=== PATIENT | male | born 1935 | race Asian ===

== ENCOUNTER 2016-05-07 08:49 | Emergency (ER) | payer OTHER ==
[~2016-05-07] VITALS: Ht 167.6 cm; Wt 77.1 kg
[~2016-05-07 08:49] MED LIST: ATOR20TA; CLOP75TA41; DUTA0.5C11; ISOS30TA17; NITR0.4S31; TERA2CAP45
[2016-05-07 10:11] LABS: Basophils # (auto) 0.1 uL; Basophils % (auto) 0.6 % (0.0-2.0); Eosinophils # (auto) 0.1 uL; Eosinophils % (auto) 0.8 % (0.0-7.0); Hematocrit 45.7 % (41.0-53.0); Hemoglobin 15.6 g/dL (13.5-17.5); Lymphocytes # (auto) 1.3 uL; Lymphocytes % (auto) 15.8 % (10.0-50.0); Mean Corpuscular Hemoglobin 30.3 pg (28.0-32.0); Mean Corpuscular Hgb Conc. 34.2 g/dL (32.0-36.0); Mean Corpuscular Volume 88.6 fL (80.0-100.0); Mean Platelet Volume 8.1 fL (7.4-10.4); Monocytes # (auto) 0.3 uL; Monocytes % (auto) 4.2 % (0.0-12.0); Neutrophils # (auto) 6.5 uL; Neutrophils % (auto) 78.6 % (37.0-80.0); Platelet Count (auto) 211 10^3/uL (140-450); Red Cell Distribution Width 14.8 % (11.6-16.0); White Blood Cell 8.3 10^3/uL (4.4-10.8)
[2016-05-07 10:35] LABS: Alkaline Phosphatase 55 U/L (45-117); Anion Gap 9 (5-15); Aspartate Aminotransferase 19 U/L (15-37); BUN/Creatinine Ratio 13.5; Bilirubin, Total 0.8 mg/dL (0.2-1.0); Blood Urea Nitrogen 15 mg/dL (7-18); Calcium 8.7 mg/dL (8.5-10.1); Carbon Dioxide 26 mmol/L (21-32); Chloride 107 mmol/L (98-107); GFR African American 82 mL/min; GFR Non-African American 68 mL/min; Glucose 131 mg/dL (74-106); Magnesium 2.1 mg/dL (1.6-2.6); Potassium 4.8 mmol/L (3.5-5.1); Sodium 142 mmol/L (136-145); Total Protein 7.7 g/dL (6.4-8.2)
[2016-05-07] MEDS ORDERED: MECLIZINE HCL 25 MG TAB PO ONE (13:45)
[2016-05-07 16:10] VITALS: BP 137/69
== END 2016-05-07 16:34 | disposition home or self-care (01) ==
LOC: ER 08:57
DX: H81.10 Benign paroxysmal vertigo, unspecified ear (principal); R00.1 Bradycardia, unspecified; I10 Essential (primary) hypertension; R73.9 Hyperglycemia, unspecified; E78.5 Hyperlipidemia, unspecified; I20.9 Angina pectoris, unspecified; N40.0 Benign prostatic hyperplasia without lower urinary tract symptoms
CPT/HCPCS: 36415; 70450; 71020; 80053; 83735; 84484; 85025; 93005; 99285; J8597

== ENCOUNTER 2021-09-23 08:47 | Emergency (ER) | payer OTHER ==
[~2021-09-23 08:47] MED LIST changes: -CLOP75TA41; +CLOP75TA70
[2021-09-23 09:00] VITALS: BP 106/74
[2021-09-23] MEDS ORDERED: methylPREDNISolone SOD SUCC 125 MG/2 ML VL IM ONE (09:15)
[2021-09-23 09:39] LABS: Basophils # (auto) 0 10 ^3/uL (0-0.2); Basophils % (auto) 0.8 % (0.0-2.0); Eosinophils # (auto) 0.1 10 ^3/uL (0-0.8); Eosinophils % (auto) 0.9 % (0.0-7.0); Hematocrit 40.5 % (41.0-53.0); Hemoglobin 13.6 g/dL (13.5-17.5); Lymphocytes # (auto) 1.4 10 ^3/uL (0.4-5.4); Mean Corpuscular Hemoglobin 31.6 pg (28.0-32.0); Mean Corpuscular Hgb Conc. 33.6 g/dL (32.0-36.0); Mean Corpuscular Volume 94.1 fL (80.0-100.0); Monocytes # (auto) 0.6 10 ^3/uL (0-1.3); Monocytes % (auto) 10.2 % (0.0-12.0); Neutrophils # (auto) 4.1 10 ^3/uL (1.6-8.6); Neutrophils % (auto) 66.1 % (37.0-80.0); Nucleated Red Blood Cells % 0.1 %; Red Cell Distribution Width 13.6 % (11.8-14.3); White Blood Cell 6.1 10^3/uL (4.4-10.8)
[2021-09-23 09:53] LABS: BUN/Creatinine Ratio 10.8; Calcium 8.8 mg/dL (8.5-10.1); Potassium 3.8 mmol/L (3.5-5.1); Uric Acid 8.5 mg/dL (3.5-7.2)
[2021-09-23] MEDS ORDERED: traMADol HCL 50 MG TAB PO ONE (10:00)
[2021-09-23] MEDS ORDERED: TRAM-297 PO (10:04)
[2021-09-23] MEDS ORDERED: PRED20TA2 PO (10:04)
== END 2021-09-23 10:10 | disposition home or self-care (01) ==
LOC: ER 08:47
DX: M10.9 Gout, unspecified (principal); E78.5 Hyperlipidemia, unspecified; I10 Essential (primary) hypertension
CPT/HCPCS: 36415; 73630; 80048; 84550; 85025; 96372; 99284; J2930

== ENCOUNTER 2021-12-04 07:35 | Emergency (ER) | payer OTHER ==
[~2021-12-04] VITALS: Ht 162.6 cm; Wt 79.8 kg
[~2021-12-04 07:35] MED LIST changes: +PRED20TA2 PO; +TRAM-297 PO
[2021-12-04 09:10] LABS: Basophils # (auto) 0 10 ^3/uL (0-0.2); Basophils % (auto) 0.6 % (0.0-2.0); Eosinophils # (auto) 0 10 ^3/uL (0-0.8); Eosinophils % (auto) 0.5 % (0.0-7.0); Hematocrit 40.3 % (41.0-53.0); Hemoglobin 13.8 g/dL (13.5-17.5); Lymphocytes % (auto) 13.2 % (10.0-50.0); Mean Corpuscular Hemoglobin 31.6 pg (28.0-32.0); Mean Corpuscular Hgb Conc. 34.3 g/dL (32.0-36.0); Mean Corpuscular Volume 92.2 fL (80.0-100.0); Monocytes # (auto) 0.9 10 ^3/uL (0-1.3); Monocytes % (auto) 11.3 % (0.0-12.0); Neutrophils # (auto) 5.7 10 ^3/uL (1.6-8.6); Neutrophils % (auto) 74.4 % (37.0-80.0); Nucleated Red Blood Cells % 0.1 %; Red Blood Cells 4.37 10^6/uL (4.5-5.90); Red Cell Distribution Width 14.6 % (11.8-14.3); White Blood Cell 7.7 10^3/uL (4.4-10.8)
[2021-12-04 09:16] LABS: Albumin 3.9 g/dL (3.4-5.0); Calcium 8.6 mg/dL (8.5-10.1); Potassium 3.7 mmol/L (3.5-5.1)
[2021-12-04 09:19] LABS: Bilirubin, Total 1.4 mg/dL (0.2-1.0); Total Protein 6.6 g/dL (6.4-8.2)
[2021-12-04 13:25] VITALS: BP 137/67
== END 2021-12-04 13:24 | disposition home or self-care (01) ==
LOC: ER 07:35
DX: R10.33 Periumbilical pain (principal); R74.01 Elevation of levels of liver transaminase levels; I10 Essential (primary) hypertension; E78.5 Hyperlipidemia, unspecified; M10.9 Gout, unspecified; Z95.1 Presence of aortocoronary bypass graft
CPT/HCPCS: 36415; 74176; 80053; 83690; 85025; 93005

== ENCOUNTER 2022-03-17 14:46 | Emergency (ER) | payer OTHER ==
[~2022-03-17] VITALS: Ht 162.6 cm; Wt 77.5 kg
[2022-03-17 15:37] VITALS: BP 121/79
[2022-03-17] MEDS ORDERED: TETANUS-DIPTH-ACEL PERTUSSIS 0.5ML SYR Tdap IM ONE (15:45)
[2022-03-17] MEDS ORDERED: CEPH500C PO (15:49)
== END 2022-03-17 16:02 | disposition home or self-care (01) ==
LOC: ER 14:46
DX: S61.411A Laceration without foreign body of right hand, initial encounter (principal); I10 Essential (primary) hypertension; E03.9 Hypothyroidism, unspecified; E78.5 Hyperlipidemia, unspecified; M10.9 Gout, unspecified; Z95.1 Presence of aortocoronary bypass graft; Z79.01 Long term (current) use of anticoagulants; Z79.899 Other long term (current) drug therapy; W26.8XXA Contact with other sharp object(s), not elsewhere classified, initial encounter; Y93.89 Activity, other specified; Y92.89 Other specified places as the place of occurrence of the external cause; Y99.8 Other external cause status
CPT/HCPCS: 12002; 90471; 90715; 99283; J2001

== ENCOUNTER 2022-03-27 08:28 | Emergency (ER) | payer OTHER ==
[~2022-03-27] VITALS: Ht 165.1 cm; Wt 77.0 kg
[~2022-03-27 08:28] MED LIST changes: +CEPH500C PO
[2022-03-27 09:37] VITALS: BP 154/76
== END 2022-03-27 10:14 | disposition home or self-care (01) ==
LOC: ER 08:28
DX: S61.411D Laceration without foreign body of right hand, subsequent encounter (principal); I10 Essential (primary) hypertension; E03.9 Hypothyroidism, unspecified; E78.5 Hyperlipidemia, unspecified; M10.9 Gout, unspecified; Z95.1 Presence of aortocoronary bypass graft; Z79.01 Long term (current) use of anticoagulants; Z79.899 Other long term (current) drug therapy; X58.XXXD Exposure to other specified factors, subsequent encounter

== ENCOUNTER 2023-01-27 17:17 | Inpatient (IN) | payer OTHER, MEDICAID ==
[~2023-01-27] VITALS: Ht 157.5 cm; Wt 78.4 kg
[2023-01-27] MEDS ORDERED: PROMETHAZINE HCL 25 MG/ML 1ML IV ONE (17:45)
[2023-01-27] MEDS ORDERED: SODIUM CHLORIDE 0.9% 1,000 ML IV ONE (17:45)
[2023-01-27 17:57] LABS: Basophils # (auto) 0.1 10 ^3/uL (0-0.2); Basophils % (auto) 0.8 % (0.0-2.0); Eosinophils # (auto) 0.1 10 ^3/uL (0-0.8); Eosinophils % (auto) 1.2 % (0.0-7.0); Hematocrit 40.4 % (41.0-53.0); Hemoglobin 13.4 g/dL (13.5-17.5); Lymphocytes % (auto) 12.9 % (10.0-50.0); Mean Corpuscular Hemoglobin 31.6 pg (28.0-32.0); Mean Corpuscular Hgb Conc. 33.2 g/dL (32.0-36.0); Monocytes # (auto) 0.5 10 ^3/uL (0-1.3); Monocytes % (auto) 7.1 % (0.0-12.0); Neutrophils # (auto) 6.1 10 ^3/uL (1.6-8.6); Red Blood Cells 4.25 10^6/uL (4.5-5.90); Red Cell Distribution Width 15.6 % (11.8-14.3); White Blood Cell 7.8 10^3/uL (4.4-10.8)
[2023-01-27 18:45] LABS: Alanine Aminotransferase 27 U/L (7-40); Albumin 4.4 g/dL (3.2-4.8); Alkaline Phosphatase 70 U/L (46-116); Anion Gap 9 (5-15); Aspartate Aminotransferase 35 U/L (13-40); BUN/Creatinine Ratio 17.4 (10.0-20.0); Bilirubin, Total 0.7 mg/dL (0.2-1.0); Blood Urea Nitrogen 23 mg/dL (9-23); Calcium 8.6 mg/dL (8.7-10.4); Carbon Dioxide 23 mmol/L (20-30); Chloride 109 mmol/L (98-107); Glucose 125 mg/dL (74-106); Potassium 4.3 mmol/L (3.5-5.1); Sodium 141 mmol/L (136-145); Total Protein 6.6 g/dL (5.7-8.2)
[2023-01-27 19:35] VITALS: PULSE 80; O2SAT 92
[2023-01-27 21:35] LABS: Urine Bacteria NONE SEEN /hpf (None Seen); Urine Blood Negative /uL (Negative); Urine Clarity Clear (Clear); Urine Color Yellow (Yellow); Urine Mucus FEW (None Seen); Urine Protein, UAD Negative (Negative); Urine Specific Gravity 1.018 (1.001-1.035); Urine Urobilinogen Normal (Negative); Urine WBC 1 /hpf (0 - 3); Urine pH 6.5 (5.0-8.0)
[2023-01-27 21:44] LABS: Magnesium 1.8 mg/dL (1.6-2.6)
[2023-01-27 21:56] LABS: Lactic Acid w/Reflex 2.4 mmol/L (0.4-2.0)
[2023-01-27 22:03] LABS: COVID19 ANTIGEN SOFIA FIA NEGATIVE (NEGATIVE); Rapid Influenza A Negative (Negative); Rapid Influenza B Negative (Negative)
[2023-01-28] MEDS ORDERED: MORPHINE SULFATE INJ 2 MG/ml SYRG IV PRN (00:15)
[2023-01-28] MEDS ORDERED: ACETAMINOPHEN 325 MG TAB PO PRN (00:15)
[2023-01-28] MEDS ORDERED: ONDANSETRON HCL 4 MG/2 ML VIAL IV PRN (00:15)
[2023-01-28] MEDS ORDERED: SODIUM CHLORIDE 0.9% 1,000 ML IV SCH (00:15)
[2023-01-28 04:51] VITALS: PULSE 72; RESP 18; TEMP 36.6; O2SAT 96
[2023-01-28 05:02] VITALS: BP 162/84; PULSE 66; RESP 18; TEMP 98.4; O2SAT 95
[2023-01-28 06:24] LABS: Basophils # (auto) 0.1 10 ^3/uL (0-0.2); Eosinophils # (auto) 0.1 10 ^3/uL (0-0.8); Eosinophils % (auto) 1.1 % (0.0-7.0); Hematocrit 38.5 % (41.0-53.0); Hemoglobin 13.2 g/dL (13.5-17.5); Lymphocytes # (auto) 1.6 10 ^3/uL (0.4-5.4); Mean Corpuscular Hemoglobin 31.9 pg (28.0-32.0); Mean Corpuscular Hgb Conc. 34.2 g/dL (32.0-36.0); Mean Corpuscular Volume 93.2 fL (80.0-100.0); Monocytes # (auto) 0.6 10 ^3/uL (0-1.3); Monocytes % (auto) 8.5 % (0.0-12.0); Neutrophils # (auto) 4.6 10 ^3/uL (1.6-8.6); Neutrophils % (auto) 66.4 % (37.0-80.0); Red Blood Cells 4.13 10^6/uL (4.5-5.90); Red Cell Distribution Width 15.1 % (11.8-14.3); White Blood Cell 6.9 10^3/uL (4.4-10.8)
[2023-01-28 06:44] LABS: Alanine Aminotransferase 19 U/L (7-40); Albumin 3.7 g/dL (3.2-4.8); Alkaline Phosphatase 53 U/L (46-116); Anion Gap 7 (5-15); Aspartate Aminotransferase 26 U/L (13-40); BUN/Creatinine Ratio 11.5 (10.0-20.0); Blood Urea Nitrogen 13 mg/dL (9-23); Calcium 8.3 mg/dL (8.5-10.1); Carbon Dioxide 23 mmol/L (20-30); Chloride 112 mmol/L (98-107); Glucose 93 mg/dL (74-106); Potassium 4.2 mmol/L (3.5-5.1); Sodium 142 mmol/L (136-145)
[2023-01-28 06:45] LABS: Bilirubin, Total 0.9 mg/dL (0.2-1.0); Total Protein 5.8 g/dL (5.7-8.2)
[2023-01-28 08:00] VITALS: BP 128/72; PULSE 55; RESP 16; TEMP 98.1; O2SAT 95
[2023-01-28 12:00] VITALS: BP 132/75; PULSE 56; RESP 16; TEMP 98.4; O2SAT 96
[2023-01-28 16:00] VITALS: BP 131/84; PULSE 62; RESP 16; TEMP 98.6; O2SAT 96
[2023-01-28 16:55] VITALS: BP 132/75; PULSE 56; RESP 18; TEMP 98.4
[2023-01-29 10:11] LABS: Hepatitis B Surface Antigen Negative (Negative)
[2023-01-29 10:33] LABS: Hepatitis C Antibody Negative (Negative)
== END 2023-01-28 16:20 | disposition home or self-care (01) | DRG 312 ==
LOC: EDBD 17:17 → ER 17:17 → OVERFLOW 01-28 00:38 → EAST 01-28 03:55
PROVIDERS: ADMIT Nurse Practitioner Family; ATTEND Nurse Practitioner Family
DX: R55 Syncope and collapse (principal); E87.20 Acidosis, unspecified; R00.1 Bradycardia, unspecified; N18.9 Chronic kidney disease, unspecified; I12.9 Hypertensive chronic kidney disease with stage 1 through stage 4 chronic kidney disease, or unspecified chronic kidney disease; R73.9 Hyperglycemia, unspecified; E83.51 Hypocalcemia; E78.5 Hyperlipidemia, unspecified; M10.9 Gout, unspecified; Z20.822 Contact with and (suspected) exposure to COVID-19; R42 Dizziness and giddiness; R11.2 Nausea with vomiting, unspecified; Z95.1 Presence of aortocoronary bypass graft
CPT/HCPCS: 36415; 70450; 71045; 80053; 81001; 83605; 83690; 83735; 83880; 84443; 84484; 85025; 86803; 87340; 87426; 87804; 93005; 96361; 96374; G0378

== ENCOUNTER 2024-09-26 13:16 | Inpatient (IN) | payer OTHER ==
[~2024-09-26] VITALS: Ht 160 cm; Wt 84.7 kg
[~2024-09-26 13:16] MED LIST changes: -CEPH500C PO; -TERA2CAP45; +TERA2CAP79
--- NOTE | 2024-09-26 14:59 | ED.PDOC ---
General HPI Comments HPI: Poor Historian. 89-year-old male presents to emergency department for evaluation of three day history of constipation and difficulty urinating for one day. Patient also has some generalized weakness. Denies any other acute symptoms. Patient is poor historian. Patient has some type of blood thinners. Past Medical History: Past Surgical History: Some stents placed REVIEW OF SYSTEMS: CONSTITUTIONAL: Denies acute: fever, diaphoresis, chills, HEAD: Denies acute: headache, photophobia Eyes: Denies acute: Double vision, vision loss, eye pain, eye discharge. EARS: Denies acute: tinnitus, hearing loss, ear discharge, ear pain, THROAT: Denies acute: sore throat, swelling, difficulty swallowing , pain with swallowing, change in voice. NECK: Denies acute: neck pain, neck swelling, stiff neck. HEART: Denies acute : chest pain, palpitations, LUNGS: Denies acute: SOB, wheezing, cough, hemoptysis ABDOMEN: Denies acute: , Nausea, Vomiting, diarrhea, melena , hematemesis, hematochezia SKIN: Denies acute: rash, redness, lesions, itchiness. EXTREMITIES: Denies acute: calf pain, numbness, tingling, weakness, denies pain in extremity. Denies acute: Low back pain. Neuro: Denies acute: focal neurological deficit, motor or sensory focal neurological deficit, tremors, seizure like activity, confusion, dizziness, change in mental status, loss of bowel or bladder function, cauda equina like symptoms. : Denies acute: dysuria, hematuria, flank pain, increase in urinary frequency. PSYCH: Denies acute: hallucination, suicidal ideation, homicidal ideation. PHYSICAL EXAM: General: ----[id number]----acute distress, awake and alert. Head: normocephalic, atraumatic. Neck: supple, trachea is midline, no swelling. Throat: Normal phonation. Eyes:, no erythema, no purulent discharge, no proptosis, no icterus. Heart: regular rate, regular rhythm, no significant murmur appreciated. Lungs: no apparent respiratory distress, Able to speak in full sentences. No wheezing, no rhonchi, no crackles. No stridors Clear to auscultation bilaterally. Abdomen: Suprapubic tender to palpation, non distended, soft, no guarding, no rebound, + bowel sounds. Neuro: Awake, Alert, oriented to name, self, situation, follows commands GCS=15. Speech is normal. Skin: no petechia, no purpura, no cyanosis, non-pale, not jaundice. Lower extremities: --no - Pitting edema no deformity, no focal swelling, no calf TTP. Makes eye contact. moves all four extremities. Face: no apparent facial droop. ED COURSE: DISCLAIMER: This medical document was created using an electronic medical record system with voice recognition software and computerized dictation system. Although this document has been carefully reviewed, there might still be some phonetic and typographical errors. Occasional wrong-word or "sound-alike" substitutions may have occurred due to the inherent limitations of voice recognition software. These areas are purely typographical due to imperfections of the software programs and do not reflect any compromise in the patient's medical care. Please read the chart carefully and recognize, using context, where these substitutions have occurred. Chief Complaint: Urinary Time Seen by MD: 14:26 Primary Care Provider: PAULETTE Allergies: Coded Allergies: NO KNOWN ALLERGIES (Unverified , 10/12/11) Home Meds Active Scripts Tramadol Hcl (Ultram) 50 Mg Tab, 50 MG PO BID, #20 TAB Prov:MARVA BENEDICT 09/23/21 Prednisone (Prednisone) 20 Mg Tab, 40 MG PO DAILY, #20 MG Prov:MARVA BENEDICT 09/23/21 Reported Medications Isosorbide Mononitrate (Imdur) 30 Mg Tab, DAILY 10/12/11 Dutasteride (Avodart) 0.5 Mg Cap, DAILY 10/12/11 Nitroglycerin (Nitroglycerin) 0.4 Mg Sl 10/12/11 Clopidogrel Bisulfate (CLOPIDOGREL) 75 Mg Tab, DAILY 10/12/11 Atorvastatin Calcium (Lipitor) 20 Mg Tab, DAILY 10/12/11 Terazosin Hcl (Terazosin Hcl) 2 Mg Cap, DAILY 10/12/11 Information Source: Patient Past Medical History PAST MEDICAL HISTORY: Angina, Gout, High Lipids, HTN, Thyroid Surgical History: CABG Family History Family History: Reviewed,noncontributory to illness Social History Smoker: Non-Smoker Alcohol: Denies ETOH Use Drugs: Denies Drug Use Lives In: Home X-Ray, Labs, Meds, VS Vital Signs Date Time Temp Pulse Resp B/P (MAP) Pulse Ox O2 Delivery O2 Flow Rate FiO2 09/26/24 15:40 84 16 98 Room Air* 0 21 09/26/24 15:35 98.4 78 18 162/86 (111) 98 98.4 09/26/24 15:32 98.9 95 18 162/80 (107) 100 98.9 Lab Test 09/26/24 16:23 09/26/24 15:31 09/26/24 14:47 Range/Units Troponin I High Sensitivity 18 19 </=54 ng/L White Blood Count 9.8 4.4-10.8 10^3/uL Red Blood Count 4.99 4.5-5.90 10^6/uL Hemoglobin 16.0 13.5-17.5 g/dL Hematocrit 47.1 41.0-53.0 % Mean Corpuscular Volume 94.3 80.0-100.0 fL Mean Corpuscular Hemoglobin 32.0 28.0-32.0 pg Mean Corpuscular Hemoglobin Concent 33.9 32.0-36.0 g/dL Red Cell Distribution Width 14.2 11.8-14.3 % Platelet Count 145 140-450 10^3/uL Mean Platelet Volume 8.4 6.9-10.8 fL Neutrophils (%) (Auto) 83.0 H 37.0-80.0 % Lymphocytes (%) (Auto) 10.1 10.0-50.0 % Monocytes (%) (Auto) 6.0 0.0-12.0 % Eosinophils (%) (Auto) 0.5 0.0-7.0 % Basophils (%) (Auto) 0.4 0.0-2.0 % Neutrophils # (Auto) 8.1 1.6-8.6 10 ^3/uL Lymphocytes # (Auto) 1.0 0.4-5.4 10 ^3/uL Monocytes # (Auto) 0.6 0-1.3 10 ^3/uL Eosinophils # (Auto) 0.1 0-0.8 10 ^3/uL Basophils # (Auto) 0 0-0.2 10 ^3/uL Nucleated Red Blood Cells 0.0 % Sodium Level 139 136-145 mmol/L Potassium Level 4.5 3.5-5.1 mmol/L Chloride Level 105 98-107 mmol/L Carbon Dioxide Level 22 20-31 mmol/L Anion Gap 12 5-15 Blood Urea Nitrogen 19 9-23 mg/dL Creatinine 1.52 H 0.700-1.30 mg/dL Glomerular Filtration Rate Calc 44 >90 mL/min BUN/Creatinine Ratio 12.5 10.0-20.0 Serum Glucose 96 74-106 mg/dL Lactic Acid Level 1.9 0.4-2.0 mmol/L Calcium Level 10.7 H 8.7-10.4 mg/dL Total Bilirubin 1.2 H 0.2-1.0 mg/dL Aspartate Amino Transferase (AST) 49 H 13-40 U/L Alanine Aminotransferase (ALT) 56 H 7-40 U/L Alkaline Phosphatase 65 46-116 U/L Total Protein 7.4 5.7-8.2 g/dL Albumin 5.0 H 3.2-4.8 g/dL Urine Color Light-yellow Yellow Urine Clarity Clear Clear Urine pH 5.0 5.0-9.0 Urine Specific Bernard 1.013 1.001-1.035 Urine Protein Negative Negative Urine Ketones Negative Negative Urine Blood Negative Negative /uL Urine Nitrite Negative Negative Urine Bilirubin Negative Negative Urine Urobilinogen Normal Negative mg/dL Urine Leukocyte Esterase Negative Negative /uL Urine RBC <1 0 - 3 /hpf Urine Microscopic WBC < 1 0-3 /HPF Urine Squamous Epithelial Cells Few <5 /hpf Urine Bacteria None seen None Seen /hpf Urine Mucus Few None Seen Urine Glucose Normal Normal mg/dL Current Medications Medications (Trade) Dose Ordered Sig/Kirit Route Start Time Stop Time Status Last Admin Sodium Chloride 1,000 ml @ 1,000 mls/hr Q1H ONCE IV 09/26/24 15:00 09/26/24 15:59 DC 09/26/24 15:[address] [address] Ph: [phone] DIAGNOSTIC IMAGING Diagnostic Imaging Report : [id number] Signed PATIENT: JUAN WARREN ACCT: [id number] UNIT: [id number] : 1935 LOC: ER ROOM / BED: / AGE / SEX: 89 / M ADM STATUS: REG ER SERVICE [id number] ORDERING PHYSICIAN: ROBERT LEE DO PROCEDURE(s): ABPL - CT AB PEL WO CON-NO ORAL OR IV REASON: Unable to urinate, constipation ORDER NUMBER(s): [id number], ACCESSION NUMBER(s): [id number] EXAM: CT CT AB PEL WO CON-NO ORAL OR IV HISTORY: Unable to urinate, constipation COMPARISON: CT ABD PELVIS WO CONTRAST on DOS: 12/04/21 TECHNIQUE: Helical CT images of the abdomen and pelvis were performed without IV contrast. Sagittal and coronal reformatted images were obtained. This CT exam was performed using one or more of the following dose reduction techniques: Automated exposure control, adjustment of the mA and/or kv according to patient size, or the use of iterative reconstruction techniques. Radiation Dose: Abdomen/Pelvis: CTDIvol 9.76 mGy, DLP 494.62 mGy*cm. FINDINGS: CT abdomen: There is a trace right pleural effusion. There is a trace pericardial effusion. The heart is enlarged. The noncontrast liver, spleen, gallbladder, pancreas, kidneys, and adrenal glands are unremarkable. No abdominal aortic aneurysm. CT pelvis: No abnormal bowel dilatation, free air, or free fluid. There is fecal retention in the ascending colon, descending colon, sigmoid colon, and rectum. The appendix is not dilated. There is moderate to marked prostatic enlargement, with mass effect on the urinary bladder lumen. 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 There is question of early stage avascular necrosis of the bilateral femoral heads versus artifactual appearance due to osteoarthritis. IMPRESSION: 1. Trace right pleural effusion and trace pericardial effusion. 2. Cardiomegaly. 3. Fecal retention in the colon suggestive of constipation. 4. Moderate to severe prostatic enlargement with mass effect on the urinary bladder. Recommend urology consultation if not already obtained. 5. No evidence of bowel obstruction, acute appendicitis, or other acute process in the abdomen or pelvis. ATED BY: ROMAIN REYES MD DICTATED DATE/TIME: 09/26/24 1522 SIGNED BY: ROMAIN REYES MD SIGNED DATE/TIME: 09/26/24 1522 CC: SEPSIS Sepsis Screen Physician Orders Drama Teacher (09/26/24 ) Electrocardigram (09/26/24 14:50) Ct Ab Pel Wo Con-No Oral Or Iv (09/26/24 14:50) Blood Culture (09/26/24 14:50) Troponin-I Hs (09/26/24 17:50) Bladder Scan (09/26/24 ) Insert Dodd Catheter QSHIFT (09/26/24 15:28) Vital Signs Date Time Temp Pulse Resp B/P (MAP) Pulse Ox O2 Delivery O2 Flow Rate FiO2 09/26/24 15:40 84 16 98 Room Air* 0 21 09/26/24 15:35 98.4 78 18 162/86 (111) 98 98.4 09/26/24 15:32 98.9 95 18 162/80 (107) 100 98.9 Laboratory Tests Test 09/26/24 15:31 Lactic Acid Level 1.9 mmol/L (0.4-2.0) White Blood Count 9.8 10^3/uL (4.4-10.8) Medications Medications Dose Ordered Sig/Kirit Route Start Time Stop Time Status Last Admin Dose Admin Sodium Chloride 1,000 ml @ 1,000 mls/hr Q1H ONCE IV 09/26/24 15:00 09/26/24 15:59 DC 09/26/24 15:37 Departure 1 Departure Time of Disposition: 15:29 Impression: Primary Impression: Acute urinary retention Additional Impressions: Enlarged prostate Constipation Fecal impaction in rectum Disposition: ADMITTED INPATIENT Admit to: Tele Condition: Guarded Discharged With: Self I personally scribed for ROBERT LEE DO ([email or web address]) on 09/26/24 at 17:00. Electronically submitted by Moris Mancilla ([email or web address]). I personally scribed for ROBERT LEE DO ([email or web address]) on 09/26/24 at 18:18. Electronically submitted by Becky Smith ([employer]). ROBERT LEE DO Sep 26, 2024 14:59
[2024-09-26 15:10] LABS: Urine Protein, UAD Negative (Negative)
--- NOTE | 2024-09-26 15:24 | DVH ---
EXAM: CT CT AB PEL WO CON-NO ORAL OR IV HISTORY: Unable to urinate, constipation COMPARISON: CT ABD PELVIS WO CONTRAST on DOS: 12/04/21 TECHNIQUE: Helical CT images of the abdomen and pelvis were performed without IV contrast. Sagittal a nd coronal reformatted images were obtained. This CT exam was performed using one or more of the foll owing dose reduction techniques: Automated exposure control, adjustment of the mA and/or kv according to patient size, or the use of iterative reconstruction techniques. Radiation Dose: Abdomen/Pelvis: CTDIvol 9.76 mGy, DLP 494.62 mGy*cm. FINDINGS: CT abdomen: There is a trace right pleural effusion. There is a trace pericardial effusion. The heart is enlarged. The noncontrast liver, spleen, gallbladder, pancreas, kidneys, and adrenal glands are unremarkable. No abdominal aortic aneurysm. CT pelvis: No abnormal bowel dilatation, free air, or free fluid. There is fecal retention in the asc ending colon, descending colon, sigmoid colon, and rectum. The appendix is not dilated. There is mode rate to marked prostatic enlargement, with mass effect on the urinary bladder lumen. There is moderat e lumbar and lower thoracic degenerative disc disease. There is [id number] osteoarthritis of th e hips, slightly greater on the right. There is question of early stage avascular necrosis of the willow ateral femoral heads versus artifactual appearance due to osteoarthritis. IMPRESSION: 1. Trace right pleural effusion and trace pericardial effusion. 2. Cardiomegaly. 3. Fecal retention in the colon suggestive of constipation. 4. Moderate to severe prostatic enlargement with mass effect on the urinary bladder. Recommend urolo gy consultation if not already obtained. 5. No evidence of bowel obstruction, acute appendicitis, or other acute process in the abdomen or pel vis.
[2024-09-26] MEDS: SODIUM CHLORIDE 0.9% 1,000 ML IV ONE (15:37)
[2024-09-26 15:40] VITALS: PULSE 84; RESP 16; O2SAT 98
[2024-09-26 16:03] LABS: Hematocrit 47.1 % (41.0-53.0); Hemoglobin 16.0 g/dL (13.5-17.5); Mean Corpuscular Hemoglobin 32.0 pg (28.0-32.0); Mean Corpuscular Volume 94.3 fL (80.0-100.0); Nucleated Red Blood Cells % 0.0 %
[2024-09-26 16:17] LABS: Alkaline Phosphatase 65 U/L (46-116); Anion Gap 12 (5-15); BUN/Creatinine Ratio 12.5 (10.0-20.0); Bilirubin, Total 1.2 mg/dL (0.2-1.0); Blood Urea Nitrogen 19 mg/dL (9-23); Carbon Dioxide 22 mmol/L (20-31); Chloride 105 mmol/L (98-107); Glucose 96 mg/dL (74-106); Potassium 4.5 mmol/L (3.5-5.1); Sodium 139 mmol/L (136-145); Total Protein 7.4 g/dL (5.7-8.2)
[2024-09-26 16:18] LABS: Alanine Aminotransferase 56 U/L (7-40); Albumin 5.0 g/dL (3.2-4.8); Calcium 10.7 mg/dL (8.7-10.4)
[2024-09-26 19:24] VITALS: PULSE 77; RESP 11; O2SAT 98
[2024-09-26] MEDS ORDERED: ONDANSETRON HCL 4 MG/2 ML VIAL IV PRN (20:15)
[2024-09-26] MEDS ORDERED: HYDROcodone-ACET 5/325MG TAB PO PRN (20:15)
[2024-09-26] MEDS ORDERED: DOCUSATE SOD 100 MG CAP PO PRN (20:15)
[2024-09-26] MEDS ORDERED: ACETAMINOPHEN 325 MG TAB PO PRN (20:15)
--- NOTE | 2024-09-26 20:47 | DVHHP2 ---
History of Present Illness Reason for Visit: Acute urinary retention History of Present Illness The patient is a 89-year-old male with past medical history of angina, GERD, hyperlipidemia, thyroid disease, and hypertension who presented to [facility] ED with complaint of difficulty urinating for the past 1 day. Patient reports he has also has been experiencing generalized weakness, constipation, getting worse that prompted this visit. Patient was seen and evaluated in the ED, laboratory data shows WBC 9.8, platelets 145, sodium 139, potassium 4.5, BUN 19, creatinine 1.52, glucose 96, calcium 10.7, total bilirubin 1.2, AST 49, ALT 56, troponin 22, albumin 5.0, blood pressure 166/97, heart rate 79, temperature 98.4 F, O2 saturation 97% on room air. Abdomen/pelvis CT revealing cardiomegaly, fecal retention in the colon suggestive of constipation, moderate to severe prosthetic enlargement with mass effect on the urinary bladder, no ev idence of bowel obstruction, acute appendicitis, or other acute process in the abdomen or pelvis. Please see medication orders section in the computer. On my assessment, patient denied chest pain, no headache, no dizziness, no shortness of breaths, no nausea, no vomiting, no fever, no chills. Patient was admitted for further evaluation and medical management. Past Medical History Angina, Gout, High Lipids, HTN, Thyroid Past Surgical History CABG Family History Reviewed, noncontributory to the management of this case. Past Social History The patient lives at home, denies smoking, alcohol or illicit drugs abuse. Review of Systems Constitutional: Yes: Weakness; No: Fever, Chills, Sweats, Malaise, Other Eyes: No: Pain, Vision change, Conjunctivae inflammation, Eyelid inflammation, Other, Redness ENT: No: Ear pain, Ear discharge, Nose pain, Nose discharge, Nose congestion, Mouth pain, Mouth swelling, Throat pain, Throat swelling, Other Respiratory: No: Cough, Dry, Shortness of breath, SOB with excertion, Wheezing, Hemoptysis, Pleuritic Pain, Sputum, Wheezing, Other Cardiovascular: No: Chest Pain, Palpitations, Orthopnea, Paroxysmal Noc. Dyspnea, Edema, Lt Headedness, Other Gastrointestinal: No: Nausea, Vomiting, Abdominal Pain, Diarrhea, Constipation, Melena, Hematochezia, Other Genitourinary: No Dysuria, No Frequency, No Incontinence, No Hematuria; Ret ention; No Other Musculoskeletal: No: other, neck pain, shoulder pain, arm pain, back pain, hand pain, leg pain, foot pain Skin: No: Rash, Lesions, Jaundice, Bruising, Other Neurological: No: Weakness, Numbness, Incoordination, Change in speech, Confusion, Seizures, Other Allergies: Coded Allergies: NO KNOWN ALLERGIES (Unverified , 10/12/11) Medications Current Medications Medications Dose Ordered Sig/Kirit Route Start Time Stop Time Status Last Admin Dose Admin Tamsulosin HCl 0.4 mg QPM PO 09/27/24 18:00 UNV Atorvastatin Calcium 20 mg HS PO 09/26/24 22:00 UNV Clopidogrel Bisulfate 75 mg DAILY PO 09/27/24 10:00 UNV Metoprolol Tartrate 25 mg BID PO 09/26/24 22:00 UNV Hydralazine HCl 10 mg Q6HP PRN IV 09/26/24 20:15 UNV Sodium Chloride 1,000 ml @ 60 mls/hr [id number] IV 09/26/24 20:15 UNV Acetaminophen/ Hydrocodone Bitart 1 tab Q4HP PRN PO 09/26/24 20:15 UNV Ondansetron HCl 4 mg Q4HP PRN IV 09/26/24 20:15 UNV Docusate Sodium 100 mg BIDPRN PRN PO 09/26/24 20:15 UNV Acetaminophen 650 mg Q6HP PRN PO 09/26/24 20:15 UNV Exam Vital Signs Vital Signs Date Time Temp Pulse Resp B/P (MAP) Pulse Ox O2 Delivery O2 Flow Rate FiO2 09/26/24 19:24 97.2 77 11 142/76 (98) 96 97.2 09/26/24 19:24 Room Air* 0 21 General Appearance: Alert, Oriented X3, Cooperative, No acute distress HEENT: Atraumatic, PERRLA, EOMI, Mucous membr. moist/pink Respiratory: Normal air movement Cardiovascular: Regular rate, Normal S1, Normal S2, No murmurs Abdominal: Normal bowel sounds, Soft, No tenderness, No hepatospenomegaly, No masses Extremities: No clubbing, No cyanosis, No edema, Normal pulses, No tenderness/swelling Skin: No rashes, No significant lesion Neuro: Normal speech, Normal tone, Sensation intact, Cranial nerves 3-12 NL, Reflexes 2+, Other (RN) Psych/Mental Status: Mental status NL, Mood NL Labs/Xrays Labs Test 09/26/24 18:18 09/26/24 15:31 09/26/24 14:47 Range/Units Troponin I High Sensitivity 22 </=54 ng/L White Blood Count 9.8 4.4-10.8 10^3/uL Red Blood Count 4.99 4.5-5.90 10^6/uL Hemoglobin 16.0 13.5-17.5 g/dL Hematocrit 47.1 41.0-53.0 % Mean Corpuscular Volume 94.3 80.0-100.0 fL Mean Corpuscular Hemoglobin 32.0 28.0-32.0 pg Mean Corpuscular Hemoglobin Concent 33.9 32.0-36.0 g/dL Red Cell Distribution Width 14.2 11.8-14.3 % Platelet Count 145 140-450 10^3/uL Mean Platelet Volume 8.4 6.9-10.8 fL Neutrophils (%) (Auto) 83.0 H 37.0-80.0 % Lymphocytes (%) (Auto) 10.1 10.0-50.0 % Monocytes (%) (Auto) 6.0 0.0-12.0 % Eosinophils (%) (Auto) 0.5 0.0-7.0 % Basophils (%) (Auto) 0.4 0.0-2.0 % Neutrophils # (Auto) 8.1 1.6-8.6 10 ^3/uL Lymphocytes # (Auto) 1.0 0.4-5.4 10 ^3/uL Monocytes # (Auto) 0.6 0-1.3 10 ^3/uL Eosinophils # (Auto) 0.1 0-0.8 10 ^3/uL Basophils # (Auto) 0 0-0.2 10 ^3/uL Nucleated Red Blood Cells 0.0 % Sodium Level 139 136-145 mmol/L Potassium Level 4.5 3.5-5.1 mmol/L Chloride Level 105 98-107 mmol/L Carbon Dioxide Level 22 20-31 mmol/L Anion Gap 12 5-15 Blood Urea Nitrogen 19 9-23 mg/dL Creatinine 1.52 H 0.700-1.30 mg/dL Glomerular Filtration Rate Calc 44 >90 mL/min BUN/Creatinine Ratio 12.5 10.0-20.0 Serum Glucose 96 74-106 mg/dL Lactic Acid Level 1.9 0.4-2.0 mmol/L Calcium Level 10.7 H 8.7-10.4 mg/dL Total Bilirubin 1.2 H 0.2-1.0 mg/dL Aspartate Amino Transferase (AST) 49 H 13-40 U/L Alanine Aminotransferase (ALT) 56 H 7-40 U/L Alkaline Phosphatase 65 46-116 U/L Total Protein 7.4 5.7-8.2 g/dL Albumin 5.0 H 3.2-4.8 g/dL Urine Color Light-yellow Yellow Urine Clarity Clear Clear Urine pH 5.0 5.0-9.0 Urine Specific [place] 1.013 1.001-1.035 Urine Protein Negative Negative Urine Ketones Negative Negative Urine Blood Negative Negative /uL Urine Nitrite Negative Negative Urine Bilirubin Negative Negative Urine Urobilinogen Normal Negative mg/dL Urine Leukocyte Esterase Negative Negative /uL Urine RBC <1 0 - 3 /hpf Urine Microscopic WBC < 1 0-3 /HPF Urine Squamous Epithelial Cells Few <5 /hpf Urine Bacteria None seen None Seen /hpf Urine Mucus Few None Seen Urine Glucose Normal Normal mg/dL PATIENT: JUAN WARREN ACCT: [id number] UNIT: [id number] : 1935 LOC: ER ROOM / BED: / AGE / SEX: 89 / M ADM STATUS: REG ER SERVICE 1450 ORDERING PHYSICIAN: ROBERT LEE DO PROCEDURE(s): ABPL - CT AB PEL WO CON-NO ORAL OR IV REASON: Unable to urinate, constipation ORDER NUMBER(s): [id number], ACCESSION NUMBER(s): [id number] EXAM: CT CT AB PEL WO CON-NO ORAL OR IV HISTORY: Unable to urinate, constipation COMPARISON: CT ABD PELVIS WO CONTRAST on DOS: 12/04/21 TECHNIQUE: Helical CT images of the abdomen and pelvis were performed without IV contrast. Sagittal and coronal reformatted images were obtained. This CT exam was performed using one or more of the following dose reduction techniques: Automated exposure control, adjustment of the mA and/or kv according to patient size, or the use of iterative reconstruction techniques. Radiation Dose: Abdomen/Pelvis: CTDIvol 9.76 mGy, DLP 494.62 mGy*cm. FINDINGS: CT abdomen: There is a trace right pleural effusion. There is a trace pericardial effusion. The heart is enlarged. The noncontrast liver, spleen, gallbladder, pancreas, kidneys, and adrenal glands are unremarkable. No abdominal aortic aneurysm. CT pelvis: No abnormal bowel dilatation, free air, or free fluid. There is fecal retention in the ascending colon, descending colon, sigmoid colon, and rectum. The appendix is not dilated. There is moderate to marked prostatic enlargement, with mass effect on the urinary bladder lumen. 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 There is [id number] osteoarthritis of the hips, slightly greater on the right. There is question of early stage avascular necrosis of the bilateral femoral heads versus artifactual appearance due to osteoarthritis. IMPRESSION: 1. Trace right pleural effusion and trace pericardial effusion. 2. Cardiomegaly. 3. Fecal retention in the colon suggestive of constipation. 4. Moderate to severe prostatic enlargement with mass effect on the urinary bladder. Recommend urology consultation if not already obtained. 5. No evidence of bowel obstruction, acute appendicitis, or other acute process in the abdomen or pelvis. SEPSIS Sepsis Screen Date sepsis recognized/suspect: Sep 26, 2024 Time Sepsis recognized/suspect: 1923 Recent Procedure: No On Antibiotic Therapy: No Respiratory Rate >20: No Heart Rate >90: No Temp<36 C (96.8 F) or >38.3 C: No SBP <90 or MAP <65 mmHG: No New Acute Mental Status Change: No Is the patient on CPAP, BIPAP,: No Physician Orders Steamer Operator (09/26/24 ) Electrocardigram (09/26/24 14:50) Ct Ab Pel Wo Con-No Oral Or Iv (09/26/24 14:50) Blood Culture (09/26/24 14:50) Bladder Scan (09/26/24 ) Insert Dodd Catheter QSHIFT (09/26/24 15:28) * Urology Consult (09/26/24 20:13) Tamsulosin Hydrochloride (Flomax) (09/27/24 18:00) Atorvastatin (Lipitor) (09/26/24 22:00) Clopidogrel Bisulfate (Plavix) (09/27/24 10:00) Metoprolol Tartrate Tablet (Lopressor Ta (09/26/24 22:00) Hydralazine Injection (Apresoline Inject (09/26/24 20:15) Allergies (09/26/24 20:13) Code Status (09/26/24 20:13) Sodium Chloride 0.9% (09/26/24 20:15) Oxygen Per Hour (09/26/24 20:13) Hydrocodone-Acet 5/325mg Tab (Dorsey 5/32 (09/26/24 20:15) Ondansetron Hcl (Zofran) (09/26/24 20:15) Docusate Sodium Capsule (Colace Capsule) (09/26/24 20:15) Complete Blood Count (09/27/24 04:00) Comprehensive Metabolic Panel (09/27/24 04:00) Cardiac Diet-2gna,Lofat,Lochol (09/27/24 Breakfast) Condition: Serious (09/26/24 20:13) Acetaminophen Tablet (Tylenol Tablet) (09/26/24 20:15) Bedrest With Bathroom Privileg (09/26/24 20:13) Sequential Compression Device (09/26/24 ) Vital Signs Date Time Temp Pulse Resp B/P (MAP) Pulse Ox O2 Delivery O2 Flow Rate FiO2 09/26/24 19:24 97.2 77 11 142/76 (98) 96 97.2 09/26/24 19:24 77 11 98 Room Air* 0 21 09/26/24 17:00 79 10 166/97 (120) 96 09/26/24 16:03 78 09/26/24 15:40 84 16 98 Room Air* 0 21 09/26/24 15:35 98.4 78 18 162/86 (111) 98 98.4 09/26/24 15:32 98.9 95 18 162/80 (107) 100 98.9 Laboratory Tests Test 09/26/24 15:31 Lactic Acid Level 1.9 mmol/L (0.4-2.0) White Blood Count 9.8 10^3/uL (4.4-10.8) Medications Medications Dose Ordered Sig/Kirit Route Start Time Stop Time Status Last Admin Dose Admin Sodium Chloride 1,000 ml @ 1,000 mls/hr Q1H ONCE IV 09/26/24 15:00 09/26/24 15:59 DC 09/26/24 15:37 1,000 MLS/HR Assessment/Plan Assessment/Plan Acute urinary retention Enlarged prostate Constipation Fecal impaction in rectum Plan 1. Admit to telemetry unit 2. Breathing treatment 3. Pain control management 4. Management of fluids and electrolytes 5. Consultation for hospitalist 6. Diagnostic tests chest x-ray 7. DVT prophylaxis on SCDs 8. Repeat labs CBC, CMP in a.m. 9. Continue with current medical management 10. Treatment plan discussed with patient and RN. Patient verbalized understanding. Plan discussed with: Patient, Other (RN) My Orders Orders - DARY VERAS DNP Procedure Category Date Status Time * Urology Consult CONS 09/26/24 Transmitted 20:13 Tamsulosin PHA 09/27/24 Logged Hydrochloride (Flomax) 18:00 Atorvastatin (Lipitor) PHA 09/26/24 Logged 22:00 Clopidogrel Bisulfate PHA 09/27/24 Logged (Plavix) 10:00 Metoprolol Tartrate PHA 09/26/24 Logged Tablet (Lopressor Ta 22:00 Hydralazine Injection PHA 09/26/24 Logged (Apresoline Inject 20:15 Allergies RYAN 09/26/24 In Process 20:13 Code Status CODE 09/26/24 Transmitted 20:13 Sodium Chloride 0.9% PHA 09/26/24 Logged 20:15 Oxygen Per Hour RT 09/26/24 Transmitted 20:13 Hydrocodone-Acet PHA 09/26/24 Logged 5/325mg Tab (Dorsey 20:15 Ondansetron Hcl PHA 09/26/24 Logged (Zofran) 20:15 Docusate Sodium PHA 09/26/24 Logged Capsule (Colace 20:15 Complete Blood Count LAB 09/27/24 Verified 04:00 Comprehensive LAB 09/27/24 Verified Metabolic Panel 04:00 Cardiac DIET 09/27/24 Transmitted Diet-2gna,Lofat,Lochol Breakfast Condition: Serious RYAN 09/26/24 In Process 20:13 Acetaminophen Tablet PHA 09/26/24 Logged (Tylenol Tablet) 20:15 Bedrest With Bathroom RYAN 09/26/24 In Process Privileg 20:13 Sequential RYAN 09/26/24 In Process Compression Device Problem List: (1) Acute urinary retention (2) Enlarged prostate (3) Constipation (4) Fecal impaction in rectum Date of Service: Sep 26, 2024 Billing Provider: DARY VERAS DNP Common Visit Codes: [id number] INP/OBS CARE (HIGH) DARY VERAS DNP Sep 26, 2024 20:47
[2024-09-26] MEDS ORDERED: NITROGLYCERIN 0.4 MG SL TAB SL PRN (21:00)
[2024-09-26] MEDS ORDERED: MORPHINE SULFATE INJ 2 MG/ml SYRG IV PRN (21:00)
[2024-09-26] MEDS: SODIUM CHLORIDE 0.9% 1,000 ML IV SCH (21:20)
[2024-09-26] MEDS: ATORVASTATIN 20 MG TAB PO SCH (22:17)
[2024-09-26] MEDS: METOPROLOL TARTRATE 25 MG TAB PO SCH (22:18)
[2024-09-26 23:46] VITALS: BP 167/92; PULSE 55; RESP 18; TEMP 97.8; O2SAT 96
[2024-09-27] VITALS (7 sets, daily range): BP systolic 116–167; BP diastolic 67–92; PULSE 50–57; RESP 18–19; TEMP 97.8–98.1; O2SAT 94–97
[2024-09-27] MEDS: hydrALAZINE HCL 20 MG/ML VL IV PRN (01:00)
[2024-09-27 07:23] LABS: Hematocrit 44.9 % (41.0-53.0); Hemoglobin 15.8 g/dL (13.5-17.5); Mean Corpuscular Hemoglobin 32.9 pg (28.0-32.0); Mean Corpuscular Volume 93.8 fL (80.0-100.0); Nucleated Red Blood Cells % 0.1 %
[2024-09-27 07:47] LABS: Alanine Aminotransferase 39 U/L (7-40); Albumin 4.4 g/dL (3.2-4.8); Alkaline Phosphatase 58 U/L (46-116); Anion Gap 10 (5-15); BUN/Creatinine Ratio 11.0 (10.0-20.0); Blood Urea Nitrogen 14 mg/dL (9-23); Calcium 10.3 mg/dL (8.7-10.4); Carbon Dioxide 22 mmol/L (20-31); Glucose 98 mg/dL (74-106); Potassium 4.1 mmol/L (3.5-5.1); Sodium 140 mmol/L (136-145); Total Protein 6.9 g/dL (5.7-8.2)
[2024-09-27 07:48] LABS: Bilirubin, Total 1.5 mg/dL (0.2-1.0); Chloride 108 mmol/L (98-107)
[2024-09-27] MEDS ORDERED: FLUO-381 TOP (09:15)
[2024-09-27] MEDS ORDERED: ASCO500T11 PO (09:15)
[2024-09-27] MEDS ORDERED: CEL100T PO (09:15)
[2024-09-27] MEDS ORDERED: POLYSOL2 EACHEYE (09:15)
[2024-09-27] MEDS ORDERED: DICL50TA4 PO (09:15)
[2024-09-27] MEDS ORDERED: RANO500T3 PO (09:15)
[2024-09-27] MEDS ORDERED: FOLI-119 PO (09:15)
[2024-09-27] MEDS ORDERED: ALL100T PO (09:15)
[2024-09-27] MEDS: CLOPIDOGREL BISULFATE 75 MG TAB PO SCH (09:17)
--- NOTE | 2024-09-27 15:56 | DVHDS2 ---
Discharge Summary Date of Admission Sep 26, 2024 at 20:46 Date of Discharge: Sep 27, 2024 Labs/Diagnostic Data: Laboratory Results Test 09/27/24 06:31 09/26/24 18:18 09/26/24 15:31 09/26/24 14:47 White Blood Count 7.4 10^3/uL (4.4-10.8) Red Blood Count 4.79 10^6/uL (4.5-5.90) Hemoglobin 15.8 g/dL (13.5-17.5) Hematocrit 44.9 % (41.0-53.0) Mean Corpuscular Volume 93.8 fL (80.0-100.0) Mean Corpuscular Hemoglobin 32.9 pg (28.0-32.0) Mean Corpuscular Hemoglobin Concent 35.1 g/dL (32.0-36.0) Red Cell Distribution Width 14.2 % (11.8-14.3) Platelet Count 136 10^3/uL (140-450) Mean Platelet Volume 8.5 fL (6.9-10.8) Neutrophils (%) (Auto) 69.9 % (37.0-80.0) Lymphocytes (%) (Auto) 21.3 % (10.0-50.0) Monocytes (%) (Auto) 7.5 % (0.0-12.0) Eosinophils (%) (Auto) 0.7 % (0.0-7.0) Basophils (%) (Auto) 0.6 % (0.0-2.0) Neutrophils # (Auto) 5.1 10 ^3/uL (1.6-8.6) Lymphocytes # (Auto) 1.6 10 ^3/uL (0.4-5.4) Monocytes # (Auto) 0.5 10 ^3/uL (0-1.3) Eosinophils # (Auto) 0.1 10 ^3/uL (0-0.8) Basophils # (Auto) 0 10 ^3/uL (0-0.2) Nucleated Red Blood Cells 0.1 % Sodium Level 140 mmol/L (136-145) Potassium Level 4.1 mmol/L (3.5-5.1) Chloride Level 108 mmol/L (98-107) Carbon Dioxide Level 22 mmol/L (20-31) Anion Gap 10 (5-15) Blood Urea Nitrogen 14 mg/dL (9-23) Creatinine 1.27 mg/dL (0.700-1.30) Glomerular Filtration Rate Calc 54 mL/min (>90) BUN/Creatinine Ratio 11.0 (10.0-20.0) Serum Glucose 98 mg/dL (74-106) Calcium Level 10.3 mg/dL (8.7-10.4) Total Bilirubin 1.5 mg/dL (0.2-1.0) Aspartate Amino Transferase (AST) 39 U/L (13-40) Alanine Aminotransferase (ALT) 39 U/L (7-40) Alkaline Phosphatase 58 U/L (46-116) Total Protein 6.9 g/dL (5.7-8.2) Albumin 4.4 g/dL (3.2-4.8) Troponin I High Sensitivity 22 ng/L (</=54) Lactic Acid Level 1.9 mmol/L (0.4-2.0) Urine Color Light-yellow (Yellow) Urine Clarity Clear (Clear) Urine pH 5.0 (5.0-9.0) Urine Specific [place] 1.013 (1.001-1.035) Urine Protein Negative (Negative) Urine Ketones Negative (Negative) Urine Blood Negative /uL (Negative) Urine Nitrite Negative (Negative) Urine Bilirubin Negative (Negative) Urine Urobilinogen Normal mg/dL (Negative) Urine Leukocyte Esterase Negative /uL (Negative) Urine RBC <1 /hpf (0 - 3) Urine Microscopic WBC < 1 /HPF (0-3) Urine Squamous Epithelial Cells Few /hpf (<5) Urine Bacteria None seen /hpf (None Seen) Urine Mucus Few (None Seen) Urine Glucose Normal mg/dL (Normal) Other Laboratory Tests 09/27/24 06:31 Brief Hx & Hospital Course: 89-year-old male with past medical history of angina, GERD, hyperlipidemia, thyroid disease, and hypertension who presented to [facility] ED with complaint of difficulty urinating for the past 1 day. Patient reports he has also has been experiencing generalized weakness, constipation, getting worse that prompted this visit. Patient was seen and evaluated in the ED, laboratory data shows WBC 9.8, platelets 145, sodium 139, potassium 4.5, BUN 19, creatinine 1.52, glucose 96, calcium 10.7, total bilirubin 1.2, AST 49, ALT 56, troponin 22, albumin 5.0, blood pressure 166/97, heart rate 79, temperature 98.4 F, O2 saturation 97% on room air. 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 Please see medication orders section in the computer. On my assessment, patient denied chest pain, no headache, no dizziness, no shortness of breaths, no nausea, no vomiting, no fever, no chills. Patient was admitted for further evaluation and medical management. Dodd placed due to BPH Urology recommended to keep, patient refused on discharge Condition at Discharge: Good Final Diagnosis/Problems List prostatic pain BPH Urinary obstruction Discharge Disposition: Home Discharge Instruct/Medications Diet: Regular Activity: No Restrictions, As Tolerated Follow Up/Referral: PCP in 7 days Medications: same home medications Scheduled Allopurinol (Zyloprim Tablet), 1 TAB PO DAILY, (Reported) Ascorbic Acid (Vitamin C Tablet), 1 TAB PO DAILY, (Reported) Atorvastatin Calcium (Lipitor), DAILY, (Reported) Celecoxib (CeleBREX CAPSULE), 50 MG PO DAILY, (Reported) Clopidogrel Bisulfate (Clopidogrel), DAILY, (Reported) Diclofenac Sodium (Diclofenac Sodium Ec), 1 TAB PO BID, (Reported) Dutasteride (Avodart), DAILY, (Reported) Fluocinonide (Fluocinonide), 1 APPLIC TOP BID, (Reported) Folic Acid (Folic Acid), 1 MG PO DAILY, (Reported) Isosorbide Mononitrate (Imdur), DAILY, (Reported) Polyethylene Glycol-Propylene (Systane), 1 DROP EACHEYE QID, (Reported) Prednisone (Prednisone), 40 MG PO DAILY Terazosin Hcl (Terazosin Hcl), DAILY, (Reported) Tramadol Hcl (Ultram), 50 MG PO BID Miscellaneous Medications Nitroglycerin (Nitroglycerin), (Reported) Ranolazine (Ranolazine ER), 500 MG PO, (Reported) Discharge Statement: "Patient was advised to return to the ER or call 911 if any headaches, dizziness, shortness of breath, chest pain, abdominal pain, bleeding, fevers, or worsening of medical condition. Patient was counseled about treatment plan, medications, possible side effects, patientverbalized understanding. All questions were answered to the best of my ability. This discharge took greater then 30 minutes in planning, reviewing documentation, counseling the patient, and discussing with other team members." ASSESSMENT ASSESSMENT Assessment prostatic pain Date of Service: Sep 27, 2024 Billing Provider: SHERRIE LINN MD Common Visit Codes: 25925-IIL/OBS DISCH DAY >30min SHERRIE LINN MD Sep 27, 2024 15:56
[2024-09-27] MEDS ORDERED: TAMSULOSIN HYDROCHLORIDE 0.4 MG CAP PO SCH (18:00)
== END 2024-09-27 15:23 | disposition home or self-care (01) | DRG 726 ==
LOC: ER 13:16 → OVERFLOW 20:46 → TELE-WESTW 20:47
PROVIDERS: ADMIT Nurse Practitioner Family; ATTEND Nurse Practitioner Family
DX: N40.1 Benign prostatic hyperplasia with lower urinary tract symptoms (principal); N13.8 Other obstructive and reflux uropathy; K56.41 Fecal impaction; E78.5 Hyperlipidemia, unspecified; K21.9 Gastro-esophageal reflux disease without esophagitis; M10.9 Gout, unspecified; R33.8 Other retention of urine; I10 Essential (primary) hypertension; Z95.1 Presence of aortocoronary bypass graft; Z79.899 Other long term (current) drug therapy
CPT/HCPCS: 36415; 74176; 80053; 81001; 83605; 84484; 85025; 87040; 96360; G0378